=== PATIENT | female | born 1970 | race African-American/Black ===

== ENCOUNTER 2016-11-01 15:16 | Emergency (ER) | payer OTHER ==
[~2016-11-01] VITALS: Ht 177.8 cm; Wt 100.0 kg
[~2016-11-01 15:16] MED LIST: ALBU0.086 INH; AUGM875T PO; DIPH25TA28 PO; EXCETAB PO; PRENTAB72 PO
[2016-11-01 15:19] VITALS: BP 187/92; PULSE 71; RESP 18; TEMP 97.4; O2SAT 100
--- NOTE | 2016-11-01 15:24 | PD ---
Physical Exam Time Seen by Provider: 15:22 Narrative 46yo F sent by MD for c/o migraine and vomiting onset this morning. Hx of migraine with peripheral brain stimulator. Hx R sided aneurysm. Jhon focal deficits or weakness. Concerned of elevated BP also. Patient seen in triage. Awaiting bed placement. VS reviewed. Data Data Last Documented VS Vital Signs Date Time Temp Pulse Resp B/P Pulse Ox O2 Delivery O2 Flow Rate FiO2 11/01/16 15:19 97.4 71 18 187/92 100 MDM Supervised Visit with AMMY: Juany Paulino November 01, 2016 15:24
[2016-11-01] MEDS ORDERED: ALBU.5I NEB (15:52)
[2016-11-01] MEDS ORDERED: VENTAER INH ×2 (15:52)
[2016-11-01 15:54] VITALS: BP 177/104; PULSE 86; RESP 18; O2SAT 99
[2016-11-01] MEDS ORDERED: SODIUM CHLORIDE 0.9% FLUSH 10 ML FLUSH IVF PRN (16:15)
[2016-11-01] MEDS ORDERED: SODIUM CHLOR 0.9% 1000 ML INJ 1,000 ML IV ONE (16:15)
[2016-11-01] MEDS ORDERED: ONDANSETRON HCL 4 MG/2 ML VIAL IVP ONE (16:15)
--- NOTE | 2016-11-01 16:20 | PD ---
HPI Chief Complaint: Headache Time Seen by Provider: 16:16 Travel History International Travel<30 days: No Contact w/Intl Traveler<30days: No Traveled to known affect area: No History of Present Illness HPI Patient comes in for evaluation of a headache that began around 4:00 this morning with nausea and then gradually started to get the headache. Patient has pain is a pressure around her head that started behind her right eye and radiates throughout her head. Patient does have a brain stimulator that was placed last year that has had her headaches under control until today. 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 Patient states they were not able to do surgery secondary to location. Patient denies taking any medications for her headaches currently other than the occasional Excedrin. Patient reports headache is similar to previous headaches. Patient reports associated photophobia, nausea, and vomiting 6 episodes. Denies any chest pain, source breath, fevers, neck pain, or . PFSH Past Medical History Asthma: Yes Diminished Hearing: No Neurologic: Yes (BRAIN ANEURYSM) Immunizations Current: No Tetanus Vaccination: Unknown Influenza Vaccination: Yes ?: Not Menopausal: Yes : 0 Para: 0 Miscarriage: 0 : 0 Past Surgical History Other Surgery: Yes (BRAIN STIMULATOR 03/2016; BREAST REDUCTION 2006) Social History Alcohol Use: Yes (occ) Tobacco Use: No Substance Use: No Allergies-Medications (Allergen,Severity, Reaction): Coded Allergies: No Known Allergies (Unverified , 11/01/16) Reported Meds & Prescriptions Reported Meds & Active Scripts Active [place] (Hydrocodone-Acetaminophen) 5-325 mg Tab 1 Tab PO Q6H PRN Fioricet (Rdixnztecz-Oncviebbqpojq-Qfqpybgy) 50-300-40 Mg Cap 1-2 Cap PO Q6H PRN Reported Albuterol Neb (Albuterol Sulfate) 2.5 Mg/0.5 Ml Neb 2.5 Mg NEB Q6HR NEB Note: The Albuterol Sulfate Inhalation Solution is concentrated and must be diluted. Read complete instructions carefully before using. Ventolin Hfa 18 GM Inh (Albuterol Sulfate) 90 Mcg/Act Aer 2 Puff INH Q4-6H PRN Review of Systems Except as stated in HPI: all other systems reviewed are Neg Physical Exam Narrative GENERAL: Well-developed, overly nourished, in no acute distress, and non-ill appearing. SKIN: Focused skin assessment warm and dry. HEAD: Atraumatic. Normocephalic. EYES: PERRLA. EOMI. No scleral icterus. No injection or drainage. ENT: No nasal bleeding or discharge. Mucous membranes pink and moist. Face is symmetrical. NECK: Trachea midline. No JVD. Supple. No nuclear rigidity. RESPIRATORY: No accessory muscle use. No respiratory distress. MUSCULOSKELETAL: No obvious deformities. No clubbing. No cyanosis. No edema. Full range of motion. NEUROLOGICAL: Awake and alert. No obvious cranial nerve deficits. Motor grossly within normal limits. Normal speech. PSYCHIATRIC: Appropriate mood and affect; insight and judgment normal. Data Data Last Documented VS Vital Signs Date Time Temp Pulse Resp B/P Pulse Ox O2 Delivery O2 Flow Rate FiO2 11/01/16 18:00 74 18 151/89 97 Room Air 11/01/16 15:19 97.4 Orders Basic Metabolic Panel (Bmp) (11/01/16 16:07) Prothrombin Time / Inr (Pt) (11/01/16 16:07) Act Partial Throm Time (Ptt) (11/01/16 16:07) Ct Brain W/O Iv Contrast(Rout) (11/01/16 16:07) Ecg Monitoring (11/01/16 16:07) Iv Access Insert/Monitor (11/01/16 16:07) Oximetry (11/01/16 16:07) Sodium Chloride 0.9% Flush (Ns Flush) (11/01/16 16:15) Ondansetron Inj (Zofran Inj) (11/01/16 16:15) Cta Brain W Iv Contrast W 3d (11/01/16 16:15) Cta Neck W Iv Contrast W 3d (11/01/16 16:15) Sodium Chlor 0.9% 1000 Ml Inj (Ns 1000 M (11/01/16 16:15) Vascular Access Team Consult/P PRN (11/01/16 16:23) Vascular Poc Ultrasound (11/01/16 ) Complete Blood Count With Diff (11/01/16 16:46) Hydromorphone Pf Inj (Dilaudid Pf Inj) (11/01/16 17:45) Diphenhydramine Inj (Benadryl Inj) (11/01/16 19:00) Iohexol 350 Inj (Omnipaque 350 Inj) (11/01/16 19:12) Prochlorperazine Inj (Compazine Inj) (11/01/16 20:15) Labs Laboratory Tests Test 11/01/16 16:20 White Blood Count 7.6 TH/MM3 Red Blood Count 5.22 MIL/MM3 Hemoglobin 11.7 GM/DL Hematocrit 37.8 % Mean Corpuscular Volume 72.5 FL Mean Corpuscular Hemoglobin 22.5 PG Mean Corpuscular Hemoglobin 31.0 % Concent Red Cell Distribution Width 14.0 % Platelet Count 199 TH/MM3 Mean Platelet Volume 9.5 FL Neutrophils (%) (Auto) 76.2 % Lymphocytes (%) (Auto) 18.4 % Monocytes (%) (Auto) 4.3 % Eosinophils (%) (Auto) 0.7 % Basophils (%) (Auto) 0.4 % Neutrophils # (Auto) 5.8 TH/MM3 Lymphocytes # (Auto) 1.4 TH/MM3 Monocytes # (Auto) 0.3 TH/MM3 Eosinophils # (Auto) 0.1 TH/MM3 Basophils # (Auto) 0.0 TH/MM3 CBC Comment DIFF FINAL Differential Comment Prothrombin Time 10.9 SEC Prothromb Time International 1.0 RATIO Ratio Activated Partial 26.9 SEC Thromboplast Time Sodium Level 140 MEQ/L Potassium Level 3.8 MEQ/L Chloride Level 107 MEQ/L Carbon Dioxide Level 24.8 MEQ/L Anion Gap 8 MEQ/L Blood Urea Nitrogen 6 MG/DL Creatinine 0.72 MG/DL Estimat Glomerular Filtration 106 ML/MIN Rate Random Glucose 69 MG/DL Calcium Level 9.2 MG/DL [facility] Medical Decision Making Medical Screen Exam Complete: Yes Emergency Medical Condition: Yes Differential Diagnosis Subarachnoid hemorrhage, migraine, electrolyte abnormality, other Narrative Course 1625 blood pressure rechecked noted to be 162/83. 1734 patient reassessed reports minimal improvement of headaches. Additional medication ordered of IV Dilaudid is ordered. 1850 patient reports headache improving but not resolved. Patient taken to CAT scan. 1999 after speaking with the patient, reviewing patient's chart, which is found to be 2 different chart records, and Dr. Oropeza discussing patient further with the radiologist. Dr. Oropeza recommends contacting neurosurgery and discussing patient with neurosurgeon on-call. 2011 discussed all findings and plan of care with patient. Awaiting neurology call back. Patient reports that headache continues to improve but still having some nausea. Patient was signed out to Dr. Oropeza at end of my shift pending return call from Dr. Barboza. Please see his documentation for final diagnosis and disposition. Physician Communication Physician Communication [address] Dr. Arreola called regarding patients CTA of head and when he does not see an aneurysm and is recommending a lumbar puncture. I discussed this with Dr. Oropeza who then called Dr. Arreola and discussed with him. 2007 I discussed patient with Dr. Mckeon neurosurgeon financial service professional, who states he is familiar with the patient and that she suffers from chronic migraines. States that if the CTA of the brain is negative for aneurysm or bleed he would not recommend doing the lumbar puncture but if Dr. Oropeza wants to do when he is more than welcome to do one. Discussed this with Dr. Oropeza. Scripts Hydrocodone-Acetaminophen ([place])5-325 mg Tab1 Tab PO Q6H PRN ([place]) #20 TAB Ref 0 Prov:Ezra Oropeza MD 11/01/16 Brppknfudt-Opfhngshrtpgy-Tfelfakv (Fioricet)50-300-40 Mg Cap1-2 Cap PO Q6H PRN ( HEADACHE) #30 CAP Ref 0 Prov:Ezra Oropeza MD 11/01/16 Alexy Dietrich November 01, 2016 16:20
[2016-11-01 16:22] VITALS: BP 162/83; PULSE 77; RESP 16; O2SAT 99
[2016-11-01 17:10] LABS: APTT (PATIENT) 26.9 SEC (24.3-30.1); PROTHROMBIN TIME - PATIENT 10.9 SEC (9.8-11.6)
[2016-11-01 17:19] LABS: BICARBONATE 24.8 MEQ/L (21.0-32.0); POTASSIUM 3.8 MEQ/L (3.5-5.1)
[2016-11-01 17:37] LABS: AUTOMATED NEUTROPHIL # 5.8 TH/MM3 (1.8-7.7); BASOPHIL % 0.4 % (0.0-2.0); EOSINOPHIL # 0.1 TH/MM3 (0-0.4); EOSINOPHIL % 0.7 % (0.0-4.0); HEMATOCRIT 37.8 % (35.0-46.0); HEMO FLAGS DIFF FINAL; LYMPH % 18.4 % (9.0-44.0); LYMPHOCYTE # 1.4 TH/MM3 (1.0-4.8); MEAN CELL VOLUME 72.5 FL (80.0-100.0); MEAN CORPUSCULAR HEMOGLOBIN 22.5 PG (27.0-34.0); MONO % 4.3 % (0.0-8.0); NEUT % 76.2 % (16.0-70.0); PLATELET COUNT 199 TH/MM3 (150-450); RED BLOOD COUNT 5.22 MIL/MM3 (4.00-5.30); WHITE BLOOD COUNT 7.6 TH/MM3 (4.0-11.0)
[2016-11-01] MEDS ORDERED: HYDROmorphone HCL PF 1 MG/ML VIAL IV PUSH ONE (17:45)
[2016-11-01 18:00] VITALS: BP 151/89; PULSE 74; RESP 18; O2SAT 97
[2016-11-01] MEDS ORDERED: diphenhydrAMINE HCL 50 MG/ML VIAL IV PUSH ONE (19:00)
[2016-11-01] MEDS ORDERED: IOHEXOL 350 MG/ML 10 ML VIAL (for RAD DIAG) IV ONE (19:12)
--- NOTE | 2016-11-01 19:36 | RADRPT ---
EXAM DATE/TIME: 11/01/2016 19:00 [facility] COMPARISON: CT BRAIN W/O CONTRAST, May 19, 2016, 17:42. INDICATIONS : Cephalgia. RADIATION DOSE: 56.35 CTDIvol (mGy) MEDICAL HISTORY : Brain aneurysm. SURGICAL HISTORY : Brain stimulator. ENCOUNTER: Initial ACUITY: 1 day PAIN SCALE: 10/10 LOCATION: Cranial TECHNIQUE: Multiple contiguous axial images were obtained of the head. Using automated exposure control and adjustment of the mA and/or kV according to patient size, radiation dose was kept as low as reasonably achievable to obtain optimal diagnostic quality images. FINDINGS: Intercranial contents are remarkable only for extensive dural calcification. There is no parenchymal hemorrhage, acute infarction or mass lesion. There are no extra-axial fluid collectio ns appreciated. Evidence for previous surgery is seen in the occiput. CONCLUSION: 1. Negative for subarachnoid hemorrhage. 2. If there is clinical concern of such lumbar puncture would be much more sensitive in this patient with a history aneurysm. Cameron Arreola MD FACR on November 01, 2016 at 19:14 Board Certified Radiologist. This report was verified electronically.
--- NOTE | 2016-11-01 19:44 | RADRPT ---
EXAM DATE/TIME: 11/01/2016 19:00 [facility] COMPARISON: No previous studies available for comparison. INDICATIONS : Cephalgia. IV CONTRAST: 60 cc Omnipaque 350 (iohexol) IV ; Cumulative dose for multiple exams. RADIATION DOSE: 17.14 CTDIvol (mGy) ; Combined studies MEDICAL HISTORY : Aneurysm, intracranial. SURGICAL HISTORY : Brain stimulator. ENCOUNTER: Initial ACUITY: 1 day PAIN SCALE: 10/10 LOCATION: cranial TECHNIQUE: Volumetric scanning was performed using a multi-row detector CT scanner. The data was post processed with a variety of visualization algorithms including full volume maximum intensity projection, multi -planar sliding thin slab reformation, curved planar reformation, and surface rendering techniques. Using automated exposure control and adjustment of the mA and/or kV according to patient size, radiat ion dose was kept as low as reasonably achievable to obtain optimal diagnostic quality images. FINDINGS: Patient has history of an untreated MCA aneurysm. I cannot find record of such. I do not see evide nce of aneurysm subarachnoid hemorrhage. Findings were discussed with Kaur FAYE. CONCLUSION: Negative for aneurysm. Followup is suggested. Cameron Arreola MD FACR on November 01, 2016 at 19:35 Board Certified Radiologist. This report was verified electronically.
--- NOTE | 2016-11-01 19:55 | RADRPT ---
EXAM DATE/TIME: 11/01/2016 19:00 [facility] COMPARISON: No previous studies available for comparison. INDICATIONS : Cephalgia. IV CONTRAST: 60 cc Omnipaque 350 (iohexol) IV ; Cumulative dose for multiple exams. RADIATION DOSE: 17.04 CTDIvol (mGy) ; Combined studies MEDICAL HISTORY : Aneurysm, intracranial. SURGICAL HISTORY : Brain stimulator. ENCOUNTER: Initial ACUITY: 1 day PAIN SCALE: 10/10 LOCATION: cranial Elevated flow velocities and ICA/CCA ratios have been found to correlate with increased degrees of vessel stenosis, calculated as percentage of diameter relative to a normal segment of distal ICA/CCA. TECHNIQUE: Volumetric scanning was performed using a multirow detector CT scanner. The data was post processed with a variety of visualization algorithms including full-volume maximum intensity pro jection, multiplanar sliding thin-slab reformation, curved-planar reformation, and surface-rendering techniques. Using automated exposure control and adjustment of the mA and/or kV according to patient size, radiation dose was kept as low as reasonably achievable to obtain optimal diagnostic quality i mages. FINDINGS: AORTIC ARCH: There is a three-vessel origin of the great vessels from the aorta. No evidence of ostial narrowing. RIGHT CAROTID: The common carotid artery is intact. The carotid bulb has a normal configuration w ithout ulceration or narrowing. The internal carotid artery lumen is smooth without stenosis. The ex ternal carotid artery is intact. LEFT CAROTID: The common carotid artery is intact. The carotid bulb has a normal configuration w ithout ulceration or narrowing. The internal carotid artery lumen is smooth without stenosis. The e xternal carotid artery is intact. VERTEBRALS: The vertebral arteries have a symmetric diameter. No stenotic lesions are seen. CONCLUSION: Negative CT of the carotids. Cameron Arreola MD FACR on November 01, 2016 at 19:51 Board Certified Radiologist. This report was verified electronically.
[2016-11-01] MEDS ORDERED: PROCHLORPERAZINE INJ 10 MG/2 ML VIAL IVP ONE (20:15)
--- NOTE | 2016-11-01 20:17 | PD ---
Physical Exam Narrative Patient was seen by physician pathology assistant and myself. Patient's is comfortable in the room, no meningismus. Patient does not have any persistent vomiting or neck pain. Patient does not have any focal neurological deficit. Patient got relief from medication for the headache. I spoke with radiologist about her CTA of the brain. Patient had normal CTA of the brain in 2014. Patient had an MRI of the brain the same time and was positive for 4 mm saccular aneurysm at the left MCA bifurcation. CTA of the brain today negative for acute pathology. We spoke with Dr. Mckeon, who was familiar with the patient and advised not to have a lumbar puncture unless I think is necessary. Considering she had 2 normal CTA of the brain and she has headache today with pressure squeezing frontal head with radiation to the upper neck area and pressure behind the right eye with nausea vomiting and photophobia which is typical of headaches she had in the past. I do not think it is necessary for lumbar puncture today. I will speak with her physician, another neurosurgeon, Dr. Nguyen, who is familiar with the patient and advised patient to go to ED today. Data Data Last Documented VS Vital Signs Date Time Temp Pulse Resp B/P Pulse Ox O2 Delivery O2 Flow Rate FiO2 11/01/16 18:00 74 18 151/89 97 Room Air 11/01/16 15:19 97.4 Orders Basic Metabolic Panel (Bmp) (11/01/16 16:07) Prothrombin Time / Inr (Pt) (11/01/16 16:07) Act Partial Throm Time (Ptt) (11/01/16 16:07) Ct Brain W/O Iv Contrast(Rout) (11/01/16 16:07) Ecg Monitoring (11/01/16 16:07) Iv Access Insert/Monitor (11/01/16 16:07) Oximetry (11/01/16 16:07) Sodium Chloride 0.9% Flush (Ns Flush) (11/01/16 16:15) Ondansetron Inj (Zofran Inj) (11/01/16 16:15) Cta Brain W Iv Contrast W 3d (11/01/16 16:15) Cta Neck W Iv Contrast W 3d (11/01/16 16:15) Sodium Chlor 0.9% 1000 Ml Inj (Ns 1000 M (11/01/16 16:15) Vascular Access Team Consult/P PRN (11/01/16 16:23) Vascular Poc Ultrasound (11/01/16 ) Complete Blood Count With Diff (11/01/16 16:46) Hydromorphone Pf Inj (Dilaudid Pf Inj) (11/01/16 17:45) Diphenhydramine Inj (Benadryl Inj) (11/01/16 19:00) Iohexol 350 Inj (Omnipaque 350 Inj) (11/01/16 19:12) Prochlorperazine Inj (Compazine Inj) (11/01/16 20:15) Labs Laboratory Tests Test 11/01/16 16:20 White Blood Count 7.6 TH/MM3 Red Blood Count 5.22 MIL/MM3 Hemoglobin 11.7 GM/DL Hematocrit 37.8 % Mean Corpuscular Volume 72.5 FL Mean Corpuscular Hemoglobin 22.5 PG Mean Corpuscular Hemoglobin 31.0 % Concent Red Cell Distribution Width 14.0 % Platelet Count 199 TH/MM3 Mean Platelet Volume 9.5 FL Neutrophils (%) (Auto) 76.2 % Lymphocytes (%) (Auto) 18.4 % Monocytes (%) (Auto) 4.3 % Eosinophils (%) (Auto) 0.7 % Basophils (%) (Auto) 0.4 % Neutrophils # (Auto) 5.8 TH/MM3 Lymphocytes # (Auto) 1.4 TH/MM3 Monocytes # (Auto) 0.3 TH/MM3 Eosinophils # (Auto) 0.1 TH/MM3 Basophils # (Auto) 0.0 TH/MM3 CBC Comment DIFF FINAL Differential Comment Prothrombin Time 10.9 SEC Prothromb Time International 1.0 RATIO Ratio Activated Partial 26.9 SEC Thromboplast Time Sodium Level 140 MEQ/L Potassium Level 3.8 MEQ/L Chloride Level 107 MEQ/L Carbon Dioxide Level 24.8 MEQ/L Anion Gap 8 MEQ/L Blood Urea Nitrogen 6 MG/DL Creatinine 0.72 MG/DL Estimat Glomerular Filtration 106 ML/MIN Rate Random Glucose 69 MG/DL Calcium Level 9.2 MG/DL [facility] Supervised Visit with AMMY: Yes Narrative Course Multiple phone calls and message was left with . We spoke with Dr. Mckeon and patient is clear to be discharged home and follow-up with him or Dr. Barboza. Diagnosis Primary Impression: Cephalgia Qualified Code: R51 - Nonintractable episodic headache, unspecified headache type Patient Instructions: General Instructions Additional Instruction: Advised patient to follow with personal physician and Dr. Barboza. Return if increased headache, persistent vomiting, fever, severe neck pain. Med/Other Pt SpecificInfo: Prescription(s) given Scripts Hydrocodone-Acetaminophen ([place])5-325 mg Tab1 Tab PO Q6H PRN ([place]) #20 TAB Ref 0 Prov:Ezra Oropeza MD 11/01/16 Iautizwmsq-Gecfayvmisovg-Mtbvrzio (Fioricet)50-300-40 Mg Cap1-2 Cap PO Q6H PRN ( [place]) #30 CAP Ref 0 Prov:Ezra Oropeza MD 11/01/16 Disposition: 01 DISCHARGE HOME Condition: Stable Ezra Oropeza MD November 01, 2016 20:17
[2016-11-01] MEDS ORDERED: BUTA1CAP PO (22:03)
[2016-11-01] MEDS ORDERED: NORC5TAB PO (22:03)
== END 2016-11-01 23:17 | disposition home or self-care (01) ==
LOC: MERGE 15:16 → NEPD 15:16
DX: R51 Headache (principal); R11.2 Nausea with vomiting, unspecified; H53.149 Visual discomfort, unspecified
CPT/HCPCS: 70450; 70496; 70498; 80048; 85025; 85610; 85730; 96361; 96374; 96375; 99284; J0780; J1170; J1200; J2405; J7030; Q9967

== ENCOUNTER 2017-01-13 03:54 | Emergency (ER) | payer OTHER ==
[~2017-01-13] VITALS: Ht 180.3 cm; Wt 93.0 kg
[~2017-01-13 03:54] MED LIST changes: +ALBU.5I NEB; -AUGM875T PO; +BUTA1CAP PO; +NORC5TAB PO; +VENTAER INH
[2017-01-13 03:58] VITALS: BP 178/107; PULSE 73; RESP 16; TEMP 98; O2SAT 100
[2017-01-13] MEDS ORDERED: ADVA250A INH (04:07)
[2017-01-13 04:18] VITALS: BP 175/105; PULSE 70; RESP 16; O2SAT 98
[2017-01-13] MEDS ORDERED: SODIUM CHLOR 0.9% 1000 ML INJ 1,000 ML IV ONE (04:50)
[2017-01-13 05:00] VITALS: BP 156/92; PULSE 60; RESP 16; O2SAT 100
[2017-01-13] MEDS ORDERED: diphenhydrAMINE HCL 50 MG/ML VIAL IVP ONE (05:00)
[2017-01-13] MEDS ORDERED: PROCHLORPERAZINE INJ 10 MG/2 ML VIAL IVP ONE (05:00)
[2017-01-13] MEDS ORDERED: SODIUM CHLORIDE 0.9% FLUSH 10 ML FLUSH IVF PRN (05:00)
--- NOTE | 2017-01-13 05:52 | PD ---
HPI Chief Complaint: Headache Time Seen by Provider: 04:29 Travel History International Travel<30 days: No Contact w/Intl Traveler<30days: No Traveled to known affect area: No History of Present Illness HPI So 46-year-old woman with a history of recurrent headaches who presents emergent from with headache. She reports that she's had a history of migraine headaches. She has headaches almost daily. These are somewhat improved since she had a spinal nerve stimulator placed. She still has daily mild headaches and severe migraines to 3 times a month. She states she started getting headache 2 days ago that was typical for her regular migraines. It was worsening today so she came into the emergency department. She describes right sided headache associated with nausea and vomiting as well as photophobia and phonophobia. This is typical for her migraines. She has a known aneurysm they found during evaluation of her recurrent headaches. She is followed by neurosurgery and vascular surgery. She gets a CT scan every year to follow this. Is not changed since initially sounded in 2013. She had a CTA done recently because of the recurrent headaches. History Past Medical History Narrative Medical Chronic recurrent headaches and migraines Known cerebral aneurysm Menopausal: Yes : 0 Para: 0 Social History Alcohol Use: Yes (occ) Tobacco Use: No Allergies-Medications (Allergen,Severity, Reaction): Coded Allergies: No Known Allergies (Verified , 03/30/16) Reported Meds & Prescriptions Reported Meds & Active Scripts Active Reported Advair Diskus Inh (Fluticasone-Salmeterol Inh) 250-50 Mcg/Blist Aer 1 Puff INH BID Rinse mouth after use. Albuterol Neb (Albuterol Sulfate) 2.5 Mg/0.5 Ml Neb 2.5 Mg NEB Q6HR NEB Note: The Albuterol Sulfate Inhalation Solution is concentrated and must be diluted. Read complete instructions carefully before using. Ventolin Hfa 18 GM Inh (Albuterol Sulfate) 90 Mcg/Act Aer 2 Puff INH Q4-6H PRN Review of Systems Except as stated in HPI: all other systems reviewed are Neg Physical Exam Narrative GENERAL: 46 year-old woman, no acute distress. SKIN: Focused skin assessment warm/dry. HEAD: Atraumatic. Normocephalic. CARDIOVASCULAR: Regular rate and rhythm. No murmur appreciated. RESPIRATORY: No accessory muscle use. Clear to auscultation. Breath sounds equal bilaterally. GASTROINTESTINAL: Abdomen soft, non-tender, nondistended. Hepatic and splenic margins not palpable. MUSCULOSKELETAL: No obvious deformities. Data Data Last Documented VS Vital Signs Date Time Temp Pulse Resp B/P Pulse Ox O2 Delivery O2 Flow Rate FiO2 01/13/17 05:00 100 Room Air 01/13/17 05:00 60 16 156/92 01/13/17 03:58 98.0 Orders Ecg Monitoring (01/13/17 04:50) Iv Access Insert/Monitor (01/13/17 04:50) Oximetry (01/13/17 04:50) Sodium Chloride 0.9% Flush (Ns Flush) (01/13/17 05:00) Prochlorperazine Inj (Compazine Inj) (01/13/17 05:00) Diphenhydramine Inj (Benadryl Inj) (01/13/17 05:00) Sodium Chlor 0.9% 1000 Ml Inj (Ns 1000 M (01/13/17 04:50) MDM Medical Decision Making Medical Screen Exam Complete: Yes Emergency Medical Condition: Yes Differential Diagnosis Migraine, ICH, other Narrative Course Medical decision-making Is a 46-year-old woman with a history of recurrent migraines who presents with recurrent migraine. She states symptoms are similar to the 2-3 headache she gets a month. Maybe a little bit worse. She's had no change in the size of aneurysm. Is no evidence of bleeding. Is no abruptness in onset to suggest aneurysmal bleed. Recommend against imaging at this point we'll give migraine cocktail and reassess for improvement. Diagnosis Primary Impression: Migraine Qualified Code: G43.009 - Migraine without aura and without status migrainosus , not intractable Additional Instructions: Continue current medications. Follow-up with her primary doctor in the next 2-4 days. Med/Other Pt SpecificInfo: Prescription(s) given Scripts Tqvhngnfkc-Nhurngshveuaf-Wotfxtuo (Fioricet)50-300-40 Mg Cap1-2 Cap PO Q6H PRN ( [place]AC[place]) #30 CAP Ref 0 Prov:Daniel Gordillo MD 01/13/17 Disposition: 01 DISCHARGE HOME Condition: Stable Daniel Gordillo MD Jan 13, 2017 05:52
[2017-01-13] MEDS ORDERED: BUTA1CAP PO (05:59)
== END 2017-01-13 06:13 | disposition home or self-care (01) ==
LOC: NEPC 03:54
DX: G43.009 Migraine without aura, not intractable, without status migrainosus (principal)
CPT/HCPCS: 96374; 96375; 99284; J0780; J1200; J7030

== ENCOUNTER 2017-01-25 22:55 | Emergency (ER) | payer OTHER ==
[~2017-01-25] VITALS: Ht 180.3 cm; Wt 93.0 kg
[~2017-01-25 22:55] MED LIST changes: +ADVA250A INH; -ALBU0.086 INH; -DIPH25TA28 PO; -EXCETAB PO; -NORC5TAB PO; -PRENTAB72 PO
[2017-01-25 22:57] VITALS: BP 198/97; PULSE 73; RESP 16; TEMP 97.6; O2SAT 98
--- NOTE | 2017-01-26 00:18 | PD ---
HPI Chief Complaint: Headache Time Seen by Provider: 00:16 Travel History International Travel<30 days: No Contact w/Intl Traveler<30days: No Traveled to known affect area: No History of Present Illness HPI Patient 46-year-old female with a known history of migraines requiring frequent emergency department visits as well as a cerebral aneurysm presents emergency department with headache. Patient states that her headache may be more severe at one she had last month. She states that she's not had any visual difficulties and it's not that much more severe and swelling about the worst headache of her life. The patient does have surveillance CAT scans were ordered on her and has been CAT scan fairly frequently. She states no focalized weakness no neck pain no nausea no vomiting. States his symptoms are moderate been going on for the past 12 hours. PFSH Past Medical History Hx Anticoagulant Therapy: No Asthma: Yes Cancer: No Cardiovascular Problems: No Chemotherapy: No Diabetes: No Diminished Hearing: No Endocrine: No Gastrointestinal Disorders: No Genitourinary: No Hepatitis: No Hiatal Hernia: No Hypertension: No Immune Disorder: No Musculoskeletal: Yes (neck pain, damage to occ nerve, pain to r eye with movement) Neurologic: Yes (BRAIN ANEURYSM) Reproductive: No Respiratory: Yes (asthma) Immunizations Current: No Migraines: Yes Thyroid Disease: No ?: Not Menopausal: Yes : 0 Para: 0 Miscarriage: 0 : 0 Past Surgical History AICD: No Body Medical Devices: BATTERY TO RIGHT CHEST Hysterectomy: No Joint Replacement: No Neurologic Surgery: Yes (occiptial nerve ablation) Pacemaker: No Other Surgery: Yes (BRAIN STIMULATOR 03/2016; BREAST REDUCTION 2006) Social History Alcohol Use: Yes (occ) Tobacco Use: No Substance Use: No Allergies-Medications (Allergen,Severity, Reaction): Coded Allergies: No Known Allergies (Verified , 03/30/16) Reported Meds & Prescriptions Reported Meds & Active Scripts Active Reported Advair Diskus Inh (Fluticasone-Salmeterol Inh) 250-50 Mcg/Blist Aer 1 Puff INH BID Rinse mouth after use. Albuterol Neb (Albuterol Sulfate) 2.5 Mg/0.5 Ml Neb 2.5 Mg NEB Q6HR NEB Note: The Albuterol Sulfate Inhalation Solution is concentrated and must be diluted. Read complete instructions carefully before using. Ventolin Hfa 18 GM Inh (Albuterol Sulfate) 90 Mcg/Act Aer 2 Puff INH Q4-6H PRN Review of Systems Except as stated in HPI: all other systems reviewed are Neg Physical Exam Narrative GENERAL: Well-developed well-nourished, quite pleasant female in no obvious distress. SKIN: Focused skin assessment warm/dry. HEAD: Atraumatic. Normocephalic. EYES: Pupils equal and round. No scleral icterus. No injection or drainage. Kernig's and Brudzinski signs are negative. ENT: No nasal bleeding or discharge. Mucous membranes pink and moist. NECK: Trachea midline. No JVD. CARDIOVASCULAR: Regular rate and rhythm. No murmur appreciated. RESPIRATORY: No accessory muscle use. Clear to auscultation. Breath sounds equal bilaterally. GASTROINTESTINAL: Abdomen soft, non-tender, nondistended. Hepatic and splenic margins not palpable. MUSCULOSKELETAL: No obvious deformities. No clubbing. No cyanosis. No edema. NEUROLOGICAL: Awake and alert and oriented, cranial nerves II through XII grossly intact and nonfocal, 5 out of 5 strength in all 4 extremities. Cerebellar testing negative. PSYCHIATRIC: Appropriate mood and affect; insight and judgment normal. Data Data Last Documented VS Vital Signs Date Time Temp Pulse Resp B/P Pulse Ox O2 Delivery O2 Flow Rate FiO2 01/26/17 00:33 100 Room Air 01/25/17 22:57 97.6 73 16 198/97 Orders Ecg Monitoring (01/26/17 00:22) Iv Access Insert/Monitor (01/26/17 00:22) Oximetry (01/26/17 00:22) Sodium Chloride 0.9% Flush (Ns Flush) (01/26/17 00:30) Prochlorperazine Inj (Compazine Inj) (01/26/17 00:30) Diphenhydramine Inj (Benadryl Inj) (01/26/17 00:30) MDM Medical Decision Making Medical Screen Exam Complete: Yes Emergency Medical Condition: Yes Differential Diagnosis Migraine headache, tension headache, ruptured cerebral aneurysm seems unlikely. Narrative Course 46-year-old female with a history of recurrent migraines roomed in the emergency department she was given Benadryl and Compazine is feeling well enough to go home. Discussed CAT scan imaging of her given her history and at this time she doesn't think is warranted. She appears to have a great understanding of her aneurysm and I think that given the fact that she is telling me that her migraine is not the worst she's ever had and she is not particularly concerned about the aneurysm at this time can be taken integrated count and deferring CAT scan imaging at this time. Further patient is going to have stack radiation exposure and I think that this is good contraindication at this time. Discussed that if the patient has concerns she is welcome to return at any time for CAT scan imaging. She does have a ride home and is discharged in 2 's care. Diagnosis Primary Impression: Headache Disposition: 01 DISCHARGE HOME Condition: Stable Jonathan Arnold MD Jan 26, 2017 00:18
[2017-01-26] MEDS ORDERED: PROCHLORPERAZINE INJ 10 MG/2 ML VIAL IVP ONE (00:30)
[2017-01-26] MEDS ORDERED: SODIUM CHLORIDE 0.9% FLUSH 10 ML FLUSH IVF PRN (00:30)
[2017-01-26] MEDS ORDERED: diphenhydrAMINE HCL 50 MG/ML VIAL IVP ONE (00:30)
[2017-01-26 00:33] VITALS: O2SAT 100
== END 2017-01-26 02:04 | disposition home or self-care (01) ==
LOC: NEPE 22:55
DX: R51 Headache (principal); J45.909 Unspecified asthma, uncomplicated; Z79.51 Long term (current) use of inhaled steroids; Z79.52 Long term (current) use of systemic steroids
CPT/HCPCS: 96374; 96375; 99284; J0780; J1200

== ENCOUNTER → 2017-04-15 | Outpatient (CLI) | payer OTHER ==
[~2017-04-15] MED LIST changes: -BUTA1CAP PO
[2017-04-15 09:12] LABS: BLOOD, URINE SMALL (NEG); GLUCOSE,URINE 300 mg/dL (NEG); KETONE, URINE NEG (NEG); MUCUS URINE FEW /lpf (OCC); NITRITE,URINE NEG (NEG); SQUAMOUS EPITHELIAL CELL URINE 1 /hpf (0-5); URINE COLOR YELLOW (YELLW/STRAW)
== END ==
LOC: CLAB 08:38
PROVIDERS: ATTEND Family Medicine
DX: R31.21 Asymptomatic microscopic hematuria (principal)
CPT/HCPCS: 81001

== ENCOUNTER 2017-06-12 00:25 | Emergency (ER) | payer OTHER ==
[~2017-06-12] VITALS: Ht 180.3 cm; Wt 95.5 kg
[2017-06-12 00:28] VITALS: BP 178/106; PULSE 85; RESP 16; TEMP 98.6; O2SAT 100
[2017-06-12] MEDS ORDERED: AUGM875T3 PO (00:54)
--- NOTE | 2017-06-12 00:54 | PD ---
HPI Chief Complaint: Bite or Sting Time Seen by Provider: 00:52 Travel History International Travel<30 days: No Contact w/Intl Traveler<30days: No Traveled to known affect area: No History of Present Illness HPI [id number]-[id number] female presents for evaluation of a dog bite right hand. She reports that prior to arrival she was attempting to break up a fight between her dogs when one of the dogs bit her on her right hand. She now has pain and a puncture wound to the dorsal proximal right hand, throbbing, worse with movement or palpation. Denies any numbness or tingling or weakness. The dogs are up-to-date on all of their pet vaccinations. The patient's last tetanus vaccination is unknown. No other complaints. PFSH Past Medical History Hx Anticoagulant Therapy: No Asthma: Yes Cancer: No Cardiovascular Problems: No Chemotherapy: No Diabetes: No Diminished Hearing: No Endocrine: No Gastrointestinal Disorders: No Genitourinary: No Hepatitis: No Hiatal Hernia: No Hypertension: No Immune Disorder: No Musculoskeletal: Yes (neck pain, damage to occ nerve, pain to r eye with movement) Neurologic: Yes (BRAIN ANEURYSM) Reproductive: No Respiratory: Yes (asthma) Immunizations Current: No Migraines: Yes Thyroid Disease: No Tetanus Vaccination: > 5 Years Influenza Vaccination: Yes ?: Not Menopausal: Yes : 0 Para: 0 Miscarriage: 0 : 0 Past Surgical History AICD: No Body Medical Devices: BATTERY TO RIGHT CHEST Hysterectomy: No Joint Replacement: No Neurologic Surgery: Yes (occiptial nerve ablation) Pacemaker: No Other Surgery: Yes (BRAIN STIMULATOR 03/2016; BREAST REDUCTION 2006) Social History Alcohol Use: Yes (occ) Tobacco Use: No Substance Use: No Allergies-Medications (Allergen,Severity, Reaction): Coded Allergies: No Known Allergies (Verified Adverse Reaction, Unknown, 06/12/17) Reported Meds & Prescriptions Reported Meds & Active Scripts Active Augmentin (Amoxicillin-Clavulanate) 875-125 Mg Tab 1 Tab PO BID 7 Days Reported Advair Diskus Inh (Fluticasone-Salmeterol Inh) 250-50 Mcg/Blist Aer 1 Puff INH BID Rinse mouth after use. Albuterol Neb (Albuterol Sulfate) 2.5 Mg/0.5 Ml Neb 2.5 Mg NEB Q6HR NEB Note: The Albuterol Sulfate Inhalation Solution is concentrated and must be diluted. Read complete instructions carefully before using. Ventolin Hfa 18 GM Inh (Albuterol Sulfate) 90 Mcg/Act Aer 2 Puff INH Q4-6H PRN Review of Systems Musculoskeletal: Positive: Limited ROM, Pain Skin: Positive Other (positive for puncture wound, pain, bleeding) Physical Exam Narrative GENERAL: Well-nourished female in no acute distress SKIN: Warm and dry. Puncture wound dorsal surface of right hand with associated tenderness to palpation, mild bleeding with no pulsating blood. CARDIOVASCULAR: Regular rate and rhythm. No murmur appreciated. RESPIRATORY: No accessory muscle use. Clear to auscultation. Breath sounds equal bilaterally. Extremities: Skin as noted above associated tenderness to palpation. Slight range of motion of the right hand secondary to pain and swelling. Capillary refill less than 2 seconds all digits right hand. Distal sensation intact. Data Data Last Documented VS Vital Signs Date Time Temp Pulse Resp B/P (MAP) Pulse Ox O2 Delivery O2 Flow Rate FiO2 06/12/17 00:45 18 06/12/17 00:28 98.6 85 178/106 (130) 100 Orders Orders Hand, Complete ([id number]) (06/12/17 ) Tetanus/Diphtheria Tox Adult (Tetanus/Di (06/12/17 01:00) Amoxicil-Clavulanate (Augmentin) (06/12/17 01:00) Acetamin-Hydrocod 325-5 Mg ([place] 5-325 (06/12/17 01:00) Ed Discharge Order (06/12/17 01:07) MDM Medical Decision Making Medical Screen Exam Complete: Yes Emergency Medical Condition: Yes Medical Record Reviewed: Yes Differential Diagnosis Puncture wound, extensor tendon injury, open fracture, foreign body Narrative Course Tetanus status updated. The wound will be thoroughly irrigated and local wound care provided. Augmentin initiated. X-ray of the right hand obtained. X-ray reveals soft tissue swelling with no acute fracture. The patient is stable for discharge. Diagnosis Primary Impression: Dog bite of right hand Additional Instructions: Wash the wound daily with soap and water and apply antibiotic cream and clean bandages. Medication as prescribed. Tylenol or Motrin for pain. Return for any acutely worsening symptoms. Med/Other Pt SpecificInfo: Prescription(s) given, Wound Care Scripts Amoxicillin-Clavulanate (Augmentin) 875-125 Mg Tab 1 TAB PO BID for Infection for 7 Days, #14 TAB 0 Refills Prov: Hermelindo Salmon MD 06/12/17 Disposition: 01 DISCHARGE HOME Condition: Stable Markos Rashid Jun 12, 2017 00:54
[2017-06-12] MEDS ORDERED: AMOXICILLIN/CLAVULANATE K 875 MG TAB PO ONE (01:00)
[2017-06-12] MEDS ORDERED: ACETAMINOPHEN/HYDROcodone 325 MG/5 MG TAB PO ONE (01:00)
[2017-06-12] MEDS ORDERED: TETANUS/DIPHTHERIA TOXOID ADULT 0.5 ML VIAL IM ONE (01:00)
--- NOTE | 2017-06-12 01:03 | RADRPT ---
EXAM DATE/TIME: 06/12/2017 00:57 [facility] COMPARISON: No previous studies available for comparison. INDICATIONS : Dog bite, laceration to posterior portion of hand. MEDICAL HISTORY : None. SURGICAL HISTORY : None. ENCOUNTER: Initial ACUITY: 1 day PAIN SCORE: 8/10 LOCATION: Right hand FINDINGS: No definite fractures, or dislocations are identified. No definite lytic or sclerotic lesion is seen . Soft tissue swelling is identified dorsally. CONCLUSION: Soft tissue swelling and no definite fracture for cornelius. Nelly Vazquez MD on June 12, 2017 at 1:01 Board Certified Radiologist. This report was verified electronically.
== END 2017-06-12 01:20 | disposition home or self-care (01) ==
LOC: NEPD 00:25
DX: S61.451A Open bite of right hand, initial encounter (principal); J45.909 Unspecified asthma, uncomplicated; W54.0XXA Bitten by dog, initial encounter; Z23 Encounter for immunization
CPT/HCPCS: 73130; 90471; 90714

== ENCOUNTER 2017-10-17 16:04 | Emergency (ER) | payer OTHER ==
[~2017-10-17] VITALS: Ht 180.3 cm; Wt 100.0 kg
[~2017-10-17 16:04] MED LIST changes: +AUGM875T3 PO
[2017-10-17 16:13] VITALS: BP 147/95; PULSE 102; RESP 20; TEMP 98.4; O2SAT 100
[2017-10-17] MEDS ORDERED: HYDR-3516 PO (16:22)
[2017-10-17] MEDS ORDERED: DEPA250T2 PO (16:22)
[2017-10-17] MEDS ORDERED: PROCHLORPERAZINE INJ 10 MG/2 ML VIAL IV PUSH ONE (17:00)
[2017-10-17] MEDS ORDERED: diphenhydrAMINE HCL 50 MG/ML VIAL IV PUSH ONE (17:00)
[2017-10-17] MEDS ORDERED: SODIUM CHLOR 0.9% 1000 ML INJ 1,000 ML IV ONE (17:00)
--- NOTE | 2017-10-17 17:13 | PD ---
HPI Chief Complaint: Headache Time Seen by Provider: 16:34 Travel History International Travel<30 days: No Contact w/Intl Traveler<30days: No Traveled to known affect area: No History of Present Illness HPI This is a 47 year old female who has a history of migraine headaches with an occipital nerve stimulator, as well as a known MCA aneurysm who presents to the emergency department with 4 days of headache. She says this headache started gradually, and intermittently improves but then increases in severity. She has had some photophobia and vomiting with the headache which is typical of her migraines. She was concerned because the pain was over the back right side of her neck near where her stimulator is and she was concerned there may be an infection in the stimulator. She takes excedrin migraine for her headaches. Dr. Barboza was her neurosurgeon, and she still keeps in touch with her despite her having moved away. PFSH Past Medical History Hx Anticoagulant Therapy: No AAA: No (unruptured arterial cerebral anurysym; not coiled) Asthma: Yes Cancer: No Cardiovascular Problems: No Chemotherapy: No Diabetes: No Diminished Hearing: No Endocrine: No Gastrointestinal Disorders: No Genitourinary: No Hepatitis: No Hiatal Hernia: No Hypertension: No Immune Disorder: No Musculoskeletal: Yes (neck pain, damage to occ nerve, pain to r eye with movement) Neurologic: Yes (BRAIN ANEURYSM) Reproductive: No Respiratory: Yes (asthma) Immunizations Current: No Migraines: Yes Thyroid Disease: No Tetanus Vaccination: Never Vaccinated ?: Not Menopausal: Yes : 0 Para: 0 Miscarriage: 0 : 0 Past Surgical History AICD: No Body Medical Devices: BATTERY TO RIGHT CHEST Hysterectomy: No Joint Replacement: No Neurologic Surgery: Yes (occipital nerve ablation and a stimulator) Pacemaker: No Other Surgery: Yes (BRAIN STIMULATOR 03/2016; BREAST REDUCTION 2006) Social History Alcohol Use: Yes (occ) Tobacco Use: No Substance Use: No Allergies-Medications (Allergen,Severity, Reaction): Coded Allergies: No Known Allergies (Verified Adverse Reaction, Unknown, 10/17/17) Uncoded Allergies: mri cause of stimulator (Adverse Reaction, Unknown, 10/17/17) cant have due to stimulator Reported Meds & Prescriptions Reported Meds & Active Scripts Active Reported Hydrocodone-Acetaminophen 5-325 mg Tab 1 Tab PO Q4H PRN Depakote DR (Divalproex Sodium) 250 Mg Tabdr 250 Mg PO BID Albuterol Neb (Albuterol Sulfate) 2.5 Mg/0.5 Ml Neb 2.5 Mg NEB Q6HR NEB Note: The Albuterol Sulfate Inhalation Solution is concentrated and must be diluted. Read complete instructions carefully before using. Ventolin Hfa 18 GM Inh (Albuterol Sulfate) 90 Mcg/Act Aer 2 Puff INH Q4-6H PRN Review of Systems Except as stated in HPI: all other systems reviewed are Neg Physical Exam Narrative GENERAL: SKIN: Warm and dry. HEAD: Atraumatic. Normocephalic. No swelling or warmth over right neck EYES: Pupils equal and round. No scleral icterus. No injection or drainage. ENT: No nasal bleeding or discharge. Mucous membranes pink and moist. NECK: Trachea midline. No JVD. CARDIOVASCULAR: Regular rate and rhythm. RESPIRATORY: No accessory muscle use. Clear to auscultation. Breath sounds equal bilaterally. GASTROINTESTINAL: Abdomen soft, non-tender, nondistended. . MUSCULOSKELETAL: Extremities without clubbing, cyanosis, or edema. No obvious deformities. NEUROLOGICAL: Awake and alert. No obvious cranial nerve deficits. 5/5 strength bilateral upper and lower extremities. No dysarthria or aphasia. No upper extremity ataxia. PSYCHIATRIC: Appropriate mood and affect; insight and judgment normal. Data Data Last Documented VS Vital Signs Date Time Temp Pulse Resp B/P (MAP) Pulse Ox O2 Delivery O2 Flow Rate FiO2 10/17/17 16:13 98.4 102 20 147/95 (112) [address] Brain W/O Iv Contrast(Rout) (10/17/17 ) Prochlorperazine Inj (Compazine Inj) (10/17/17 17:00) Diphenhydramine Inj (Benadryl Inj) (10/17/17 17:00) ^ Insert Iv (10/17/17 16:48) Sodium Chlor 0.9% 1000 Ml Inj (Ns 1000 M (10/17/17 17:00) Ketorolac Inj (Toradol Inj) (10/17/17 17:45) MDM Medical Decision Making Medical Screen Exam Complete: Yes Emergency Medical Condition: Yes Interpretation(s) Afebrile, tachycardic, hypertensive Last [address] 10/17/17 0000 Signed Impressions: Service Date/Time: October 17:21 - CONCLUSION: 1. No acute findings in the brain. Cesar Stokes MD Differential Diagnosis Migraine headache, subarachnoid hemorrhage, hardware infection, tension headache Narrative Course This is a 47-year-old female who presents to the emergency department with a headache that has been going on for 4 days and is not improving. She has an occipital stimulator and a known aneurysm which is being observed. Her headache was gradual in onset and has been intermittent without a time course suggestive of subarachnoid hemorrhage. Her primary concern was that she had pain in the area of her occipital stimulator. CT of the head is reassuring. She has normal neurologic exam. I discussed with her that I did not think a lumbar puncture was necessary and she agreed. Patient will be discharged and can follow-up with her outpatient neurologist and neurosurgeon. She feels much better after a migraine cocktail. Diagnosis Primary Impression: Migraine headache Qualified Codes: G43.009 - Migraine without aura, not intractable, without status migrainosus Patient Instructions: General Instructions Additional Instructions: If you develop severe worsening headache, persistent vomiting, numbness, weakness, difficulty walking or difficulty talking return to the emergency department immediately. Sometimes in the emergency department we did not identify the cause of headaches. If you continued to have headaches it is very important that you followup with your primary care physician as you may need further testing with an MRI. Med/Other Pt SpecificInfo: No Change to Meds Disposition: 01 DISCHARGE HOME Condition: Stable Carol Arevalo MD October 17, 2017 17:13
--- NOTE | 2017-10-17 17:34 | RADRPT ---
EXAM DATE/TIME: 10/17/2017 17:21 [facility] COMPARISON: CT BRAIN W/O CONTRAST, November 01, 2016, 19:00. INDICATIONS : Cephalgia. RADIATION DOSE: 56.35 CTDIvol (mGy) MEDICAL HISTORY : Aneurysm, intracranial. Aneurysm, abdominal. SURGICAL HISTORY : None. ENCOUNTER: Initial ACUITY: 1 day PAIN SCALE: 5/10 LOCATION: cranial TECHNIQUE: Multiple contiguous axial images were obtained of the head. Using automated exposure control and adj ustment of the mA and/or kV according to patient size, radiation dose was kept as low as reasonably a chievable to obtain optimal diagnostic quality images. DICOM format image data is available electro nically for review and comparison. FINDINGS: CEREBRUM: The ventricles are normal for age. No evidence of midline shift, mass lesion, hemorrhage or acute in farction. No extra-axial fluid collections are seen prominent dural calcifications, similar to prior CT.. POSTERIOR FOSSA: The cerebellum and brainstem are intact. The 4th ventricle is midline. The cerebellopontine angle i s unremarkable. EXTRACRANIAL: The visualized portion of the orbits is intact. SKULL: The calvaria is intact. No evidence of skull fracture. Metallic densities in the occipital region f rom prior surgery. CONCLUSION: 1. No acute findings in the brain. Cesar Stokes MD on October 17, 2017 at 17:31 Board Certified Radiologist. This report was verified electronically.
[2017-10-17] MEDS ORDERED: KETOROLAC TROMETHAMINE 30 MG/ML (IVP) VIAL IV PUSH ONE (17:45)
[2017-10-17 17:56] VITALS: BP 178/107; PULSE 73; RESP 16; O2SAT 99
[2017-10-17 18:39] VITALS: BP 152/93; PULSE 79; RESP 16; O2SAT 99
== END 2017-10-17 18:49 | disposition home or self-care (01) ==
LOC: NEPC 16:04
DX: G43.009 Migraine without aura, not intractable, without status migrainosus (principal)
CPT/HCPCS: 70450; 96361; 96374; 96375; 99284; J0780; J1200; J1885; J7030